=== PATIENT | female | born 1970 | race Caucasian/White ===

== ENCOUNTER → 2019-04-19 16:28 | Outpatient (CLI) | payer OTHER, SELFPAY ==
[2014-03-06 09:29] VITALS: BMI 24.9
[2019-04-19 17:21] LABS: CRP < 2.90 mg/L (0.0-3.0)
[2019-04-19 17:35] LABS: Erythrocyte Sedimentation Rate 6 mm/hr (0-30)
== END ==
PROVIDERS: Family Provider Internal Medicine; PCP Internal Medicine; Referring Provider Internal Medicine; Visit Provider Internal Medicine
DX: R10.31 Right lower quadrant pain (principal)
CPT/HCPCS: 85652; 86140